=== PATIENT | female | born 1965 | race Caucasian/White ===

== ENCOUNTER 2021-06-18 05:18 | Day surgery (SDC) | payer OTHER ==
[~2021-06-18] VITALS: Ht 167.6 cm; Wt 77.3 kg
[~2021-06-18 05:18] MED LIST: SODIUM CHLORIDE 0.9% 1,000 ML ONE
[2021-06-18] MEDS ORDERED: SODIUM CHLORIDE 0.9% 1,000 ML IV ONE (05:30)
[2021-06-18 06:06] LABS: GLUCOMETER DEV NAME(LOC) SDS.; GLUCOSE,POINT OF CARE 115 MG/DL (70-110)
[2021-06-18] MEDS ORDERED: CHOL500043 PO (06:20)
[2021-06-18] MEDS ORDERED: LOSA-382 PO (06:20)
[2021-06-18] MEDS ORDERED: ATOR40TA28 PO (06:20)
[2021-06-18] MEDS ORDERED: DICL-206 PO (06:20)
[2021-06-18] MEDS ORDERED: METF-1211 PO (06:20)
[2021-06-18] MEDS ORDERED: ISOS30TA92 PO (06:20)
[2021-06-18] MEDS ORDERED: HYDR25TA2 PO (06:20)
[2021-06-18] MEDS ORDERED: OMEP20 PO (06:20)
[2021-06-18] MEDS ORDERED: METO25TA6 PO (06:20)
[2021-06-18] MEDS ORDERED: GABA-1181 PO (06:20)
[2021-06-18] MEDS ORDERED: ASPI-1450 PO (06:20)
[2021-06-18] MEDS ORDERED: DIAZEPAM 5 MG TABLET ONE (06:27)
[2021-06-18] MEDS ORDERED: DiphenhydrAMINE HCL 50 MG CAPSULE ONE (06:27)
[2021-06-18] MEDS ORDERED: IOHEXOL 300 MG/ML 100 ML VIAL ONE (07:19)
[2021-06-18] MEDS ORDERED: IOHEXOL 300 MG/ML 150 ML VIAL ONE (07:19)
[2021-06-18] MEDS ORDERED: HEPARIN SODIUM 1000 UNITS/NS 1,000 ML ONE (07:19)
[2021-06-18] MEDS ORDERED: LIDOCAINE/PF 1% 30 ML VIAL ONE (07:19)
[2021-06-18] MEDS ORDERED: IOHEXOL 300 MG/ML 50 ML VIAL ONE (07:19)
[2021-06-18] MEDS ORDERED: SODIUM BICARBONATE 50 MEQ/50 ML VIAL ONE (07:19)
[2021-06-18] MEDS ORDERED: DiphenhydrAMINE HCL 50 MG CAPSULE PO ONE (07:30)
[2021-06-18] MEDS ORDERED: DIAZEPAM 5 MG TABLET PO ONE (07:30)
[2021-06-18] MEDS ORDERED: ASPIRIN 81 MG CHEWABLE TABLET PO ONE (07:30)
[2021-06-18 07:45] VITALS: BP 140/71
[2021-06-18] MEDS ORDERED: FentaNYL CITRATE PF 100 MCG/2 ML VIAL ONE (07:45)
[2021-06-18] MEDS ORDERED: MIDAZOLAM HCL 2 MG/2 ML VIAL ONE (07:46)
[2021-06-18] MEDS ORDERED: MIDAZOLAM HCL 2 MG/2 ML VIAL IM ONE (08:00)
[2021-06-18] MEDS ORDERED: LIDOCAINE 1% 30 ML/SOD BICARB 8.4% 4 ML SQ ONE (08:00)
[2021-06-18] MEDS ORDERED: HEPARIN SODIUM 1000 UNITS/NS 1,000 ML IARTER ONE (08:00)
[2021-06-18] MEDS ORDERED: FentaNYL CITRATE PF 100 MCG/2 ML VIAL IVP ONE (08:00)
[2021-06-18] MEDS ORDERED: IOHEXOL 300 MG/ML 150 ML VIAL IARTER ONE (08:00)
[2021-06-18 08:22] VITALS: BP 120/64
[2021-06-18] MEDS ORDERED: AMLO-258 PO (09:26)
[2021-06-18] MEDS ORDERED: FURO40 PO (09:26)
[2021-06-18] MEDS ORDERED: GLIP10 PO (09:26)
[2021-06-18] MEDS ORDERED: METO-296 PO (09:26)
[2021-06-18] MEDS ORDERED: CLOP75TA60 PO (09:26)
[2021-06-18] MEDS ORDERED: SITA25 PO (09:26)
== END 2021-06-18 11:30 | disposition home or self-care (01) ==
LOC: CATHLAB 05:18
PROVIDERS: ATTEND Internal Medicine Interventional Cardiology
DX: R94.39 Abnormal result of other cardiovascular function study (principal); R07.9 Chest pain, unspecified; I25.10 Atherosclerotic heart disease of native coronary artery without angina pectoris; E78.5 Hyperlipidemia, unspecified; I10 Essential (primary) hypertension; E11.9 Type 2 diabetes mellitus without complications; Z98.890 Other specified postprocedural states; Z79.899 Other long term (current) drug therapy; Z72.89 Other problems related to lifestyle; Z79.82 Long term (current) use of aspirin; Z88.8 Allergy status to other drugs, medicaments and biological substances
CPT/HCPCS: 82962; 93005; 93458; 99152; C1760; J1644; J2250; J3010; J3490 ×2; J7030; Q9967